=== PATIENT | female | born 1990 | race Caucasian/White ===

== ENCOUNTER 2016-09-07 15:23 | Inpatient (IN) | payer MEDICAID, OTHER ==
[2014-08-08 14:04] VITALS: BMI 28.9
[2016-09-07] MEDS ORDERED: Sodium Citrate/Citric Acid 15 ml Sol PO ONE (15:34)
[2016-09-07] MEDS ORDERED: cefOXitin IV 2 gm in Dextrose 2 GM/50 ML BAG IVPB ONE ×2 (15:37→15:55)
[2016-09-07] MEDS ORDERED: Lactated Ringer's 1,000 ML IV SCH ×2 (15:45→17:00)
--- NOTE | 2016-09-07 15:48 | OBADHP ---
Datetime: 09/07/2016 15:39 IP Adm Impression Other: previous csection Admit Comment, IP Provider: chief complaint-contractions HPI 26 y/o at 38.5wga with c/o contractions sinec morning.Patient denies los sof fluid.report s active movement course uncomplicated as per patient PMH denies PSH scection OBGYN HX ; scection at 40 wga due to failed induction Social hx denies tobacco, alcohol or illicit drug use Exam see exam section A/P 26 y/o , at 38 weeks and 5 days with c/o contractions.Hx of previous csection in labor -admit -see orders -dr washington aware Pelvic Type - PN: Adequate Extremities - PN: Normal Abdomen - PN: Normal Back - PN: Normal Lungs - PN: Normal Heart - PN: Normal Neurologic - PN: Normal General - PN: Normal Weight - Estimated: 3200 Presentation-Admit: Vertex Contraction Comments Provider: every 2min Gestation - Est Wks by US: 38.5 IP Hx Assessment: The History has been Reviewed and is Current Vital Signs Provider: Reviewed IP Chief Complaint: Uterine contractions FHR Category Provider Fetus A: Category I Dilatation, Provider: 2 Genitourinary Exam: Normal DTRs - PN: Normal EGA AdmitDate IP: 38.5 IP Adm Impression: Term, intrauterine ; Active labor IP Admit Plan: Admit to unit; Initiate Section protocol
[2016-09-07] MEDS ORDERED: Oxytocin 20 units in LR 2,000 ML IV ONE (15:55)
[2016-09-07] MEDS ORDERED: Sodium Citrate/Citric Acid 15 ml Sol ONE (15:55)
[2016-09-07 15:59] LABS: BASO % 0.3 % (0.0-2.0); EOS % 0.7 % (0.0-4.0); HEMATOCRIT 35.7 % (34.0-47.0); LYMPH # 1.7 K/uL (1.0-4.3); MEAN CELL VOLUME 84.3 fL (81.0-99.0); MEAN CORPUSCULAR HEMOGLOBIN 27.6 pg (27.0-31.0); MEAN CORPUSCULAR HGB CONC 32.8 g/dL (33.0-37.0); MEAN PLATELET VOLUME 9.1 fL (7.2-11.7); MONO # 0.5 K/uL (0.0-0.8); MONO % 7.8 % (0.0-10.0); RED CELL DISTRIBUTION WIDTH 13.6 % (11.5-14.5); WHITE BLOOD COUNT 6.1 K/uL (4.8-10.8)
[2016-09-07] MEDS ORDERED: Oxycodone/Acetaminophen 5/325 mg Tab PO PRN (16:02)
--- NOTE | 2016-09-07 16:06 | PCM.SURG1 ---
Surgeon's Initial Post Op Note - Surgeon's Notes Surgeon: dr washington Jute Bag Clipper: dr Easley Type of Anesthesia: Spinal Anesthesia Administered By: DR RABAGO Pre-Operative Diagnosis: 26 YR at 38weeks previous c/s in labor Operative Findings: see the op reoprt Post-Operative Diagnosis: same Operation Performed: repeat secttion Specimen/Specimens Removed: cord blood. placente Estimated Blood Loss: EBL {In ML}: 800 Blood Products Given: N/A Drains Used: No Drains Post-Op Condition: Good Date of Surgery/Procedure: 09/07/16 Time of Surgery/Procedure: 17:00
[2016-09-07 16:19] LABS: CHLORIDE 102 mmol/L (98-107); SODIUM 135 mmol/L (132-148)
[2016-09-07 16:20] LABS: POTASSIUM 3.6 mmol/L (3.6-5.2)
[2016-09-07] MEDS ORDERED: Morphine 1 mg/ml preservative-free Inj(Duramorph) ONE (16:20)
[2016-09-07 16:22] LABS: ALB/GLOB RATIO 0.9 (1.0-2.1); ALKALINE PHOSPHATASE 123 U/L (38-126); ALT/SGPT 21 U/L (9-52); AST/SGOT 21 U/L (14-36); BILIRUBIN,TOTAL 0.6 mg/dL (0.2-1.3); BLOOD UREA NITROGEN 6 mg/dL (7-17); CALCIUM 8.9 mg/dl (8.6-10.4); CARBON DIOXIDE 22 mmol/L (22-30); GFR AFRICAN-AMERICAN > 60; GLUCOSE,RANDOM 82 mg/dL (65-105)
[2016-09-07 16:28] LABS: RBC URINE < 1 /hpf (0-3); URINE BACTERIA OCC (<OCC); URINE BILIRUBIN NEGATIVE (NEGATIVE); URINE BLOOD NEGATIVE (NEGATIVE); URINE COLOR Yellow (YELLOW); URINE GLUCOSE (UA) NORMAL (Normal); URINE KETONE NEGATIVE (NEGATIVE); URINE LEUKOCYTE ESTERASE TRACE Leu/uL (Negative); URINE PROTEIN NEGATIVE (NEGATIVE); URINE UROBILINOGEN NORMAL mg/dL (0.2-1.0); WBC URINE 2 /hpf (0-5)
[2016-09-07] MEDS ORDERED: Dexamethasone 4 mg/1 ml IVP PRN (16:59)
[2016-09-07] MEDS ORDERED: HYDROmorphone 0.5 mg/0.5 ml ISec IVP PRN (16:59)
[2016-09-07] MEDS ORDERED: DiphenhydrAMINE 50 mg/ml Inj IVP PRN (16:59)
--- NOTE | 2016-09-07 17:31 | OBDS ---
MATERNAL INFORMATION Provider Comments: baby deliverd in lot. end clean no com LABOR SUMMARY EDC: 09/16/2016 00:00 No. Babies in Womb: 1 LABOR INFORMATION Onset of Labor: 09/07/2016 12:30 STAGES OF LABOR Stage 3 hrs: 0 Stage 3 min: 1 Total Time in Labor hrs: 4 Total Time in Labor min: 21 VAGINAL DELIVERY Episiotomy: None Laceration Extension: N/A Laceration Type: None CSECTION DELIVERY Primary Indication: Repeat Elective Secondary Indication: N/A Other Secondary Indication: in labor CSection Urgency: Elective CSection Incidence: Repeat Labor: Labor Elective: Elective CSection Incision: Lower Uterine Transverse BABY A INFORMATION Delivery Date/Time: 09/07/2016 16:50 Method of Delivery: Born in Route : No : N/A Forceps: N/A Vacuum Extraction: N/A Shoulder Dystocia : No SHOULDER DYSTOCIA BABY A Infant Delivery Date/Time: 09/07/2016 16:50 PRESENTATION/POSITION BABY A Presentation: Cephalic Cephalic Presentation: Vertex Vertex Position: Left Occipital Anterior Breech Presentation: N/A PLACENTA INFORMATION BABY A Placenta Delivery Time : 09/07/2016 16:51 Placenta Method of Delivery: Manual Removal Placenta Status: Delivered SCORES BABY A Heart Rate 1 min: >100 bpm Resp Effort 1 min: Good Cry Reflex Irritability 1 min: Cough or Sneeze or Pulls Away Muscle Tone 1 min: Active Motion Color 1 min: Body [place], Extremities Blue SCORE 1 MIN: 9 Heart Rate 5 min: >100 bpm Resp Effort 5 min: Good Cry Reflex Irritability 5 min: Cough or Sneeze or Pulls Away Muscle Tone 5 min: Active Motion Color 5 min: Body [place], Extremities Blue SCORE 5 MIN: 9 INFANT INFORMATION BABY A Gestational Age at Delivery: 38.5 Gestational Status: Term Infant Outcome : Liveborn Infant Condition : Stable Infant Sex: Female IDENTIFICATION/MEDS BABY A ID Band Number: [id number] ID Band Location: Left Leg; Left Arm Sensor Applied: Yes Sensor Number: [id number] Sensor Location : Cord Clamp Vitamin K Given : Not Given Erythromycin Given: Not Given WEIGHT/LENGTH BABY A Infant Birthweight (gms): 2995 Infant Weight (lb): 6 Infant Weight (oz): 10 Length Inches: 18.50 Infant Length cms: 47.0 CORD INFORMATION BABY A No. Cord Vessels: 3 Nuchal Cord : N/A Cord Blood Taken: Yes Suction: Mouth; Nose ASSESSMENT BABY A Physical Findings at Delivery: Within Normal Limits Infant Respirations: Appears Normal Outreach Counselor/ALS Called : Yes Infant Care By: dr. etienne/nickolas jamison rn Transferred To: Remains with Mother
[2016-09-07 19:40] LABS: BASO % 0.5 % (0.0-2.0); EOS % 0.6 % (0.0-4.0); HEMATOCRIT 34.2 % (34.0-47.0); LYMPH % 26.6 % (20.0-40.0); MEAN CELL VOLUME 84.2 fL (81.0-99.0); MEAN CORPUSCULAR HEMOGLOBIN 27.9 pg (27.0-31.0); MEAN CORPUSCULAR HGB CONC 33.1 g/dL (33.0-37.0); MEAN PLATELET VOLUME 8.8 fL (7.2-11.7); MONO # 0.3 K/uL (0.0-0.8); MONO % 4.7 % (0.0-10.0); NRBC % 0.1 % (0.0-2.0); RED CELL DISTRIBUTION WIDTH 13.6 % (11.5-14.5); WHITE BLOOD COUNT 7.5 K/uL (4.8-10.8)
[2016-09-07] MEDS ORDERED: Oxytocin 30 UNIT 30 UNITS/500 ML BAG IV SCH (19:45)
[2016-09-07] MEDS ORDERED: Lactated Ringer's 1,000 ML IV ONE (22:14)
[2016-09-08] MEDS: Oxycodone/Acetaminophen 5/325 mg Tab PO PRN ×4 (06:18→22:04)
[2016-09-08 07:13] LABS: HEMATOCRIT 34.8 % (34.0-47.0); MEAN CELL VOLUME 85.2 fL (81.0-99.0); MEAN CORPUSCULAR HGB CONC 32.9 g/dL (33.0-37.0); MEAN PLATELET VOLUME 8.8 fL (7.2-11.7); RED CELL DISTRIBUTION WIDTH 13.6 % (11.5-14.5); WHITE BLOOD COUNT 10.6 K/uL (4.8-10.8)
--- NOTE | 2016-09-08 11:15 | OBPPN ---
Datetime: 09/08/2016 10:47 PP Pain Prov: Within normal limits PP Nausea Prov: Denies PP Flatus Prov: No PP BM Prov: No PP Breasts Prov: Normal PP Heart Prov: Normal PP Lungs Prov: Normal PP Abdomen/Uterus Prov: Normal PP Lochia Prov: Normal PP Vulva/Perineum Prov: Not Done PP CVA Tenderness Prov: Normal PP Extremities Prov: Normal PP C/S Incision Prov: Normal PP Progress Prov: Normal PP Comments Phys Exam Prov: Breasts: no cracked nipples Abdomen: Softly distended. (+) BS. Dressing - clean and dry. Fundus firm, appropriate, and mildly tender at umbilicus. All other systems reviewed and are negative PP Plan Prov: Continue present management PP Progress Note Prov: Asked by Dr. Hill to evaluate patient Patient received sitting up in chair, room 451. Support person sleeping. . Reports in cisional pain. Denies nausea, vomiting; dizziness or lightheadedness. P.E.: as above. WD in NAD. Awake, alert, oriented to time, person and place. Cooperative - POD#1 H/H 11.5/34.8. Rh(+) Assessment: POD#1 26 y.o. P2, S/P repeat C/S x 1; afebrile, vital signs stable. Returning GI and G U functions. Encouraged to ambulate. Clinically stable. Plan: 1) Continue present management Vital Signs Provider PP: Reviewed
[2016-09-08] MEDS ORDERED: Bisacodyl 5mg EC Tab PO ONE (16:02)
[2016-09-09] MEDS: Oxycodone/Acetaminophen 5/325 mg Tab PO PRN (14:06)
[2016-09-09 16:19] VITALS: RESP 20; O2SAT 99
--- NOTE | 2016-09-09 20:24 | OBPPN ---
Datetime: 09/09/2016 20:18 PP Pain Prov: Within normal limits PP Nausea Prov: Denies PP Flatus Prov: Yes PP BM Prov: No PP Breasts Prov: Normal PP Heart Prov: Normal PP Lungs Prov: Normal PP Abdomen/Uterus Prov: Normal PP Lochia Prov: Normal PP Vulva/Perineum Prov: Not Done PP CVA Tenderness Prov: Normal PP Extremities Prov: Normal PP C/S Incision Prov: Normal PP Progress Prov: Normal PP Comments Phys Exam Prov: Abdomen: soft. non distended. Incision with subcuticular closure - clean , dry, intact. Fundus firm, mobile, tender, at umbilicus All other systems reviewed and are negative PP Impression Prov: Normal progression PP Plan Prov: Continue present management PP Progress Note Prov: Patient seen and evaluated earlier in the morning: received in room 451 sitti ng up in chair. Denies nausea, vomiting. Not yet ambulating out of room. Voiding without difficulty. exclusively. P.E.: as above. WD in NAD. Awake, alert, oriented to time, person and place. Assessment: 26 y.o. P2, S/P repeat C/S. Returning GI and functions. Afebrile, vital signs stabl e. Patient encouraged to ambulate in the hallways. Clinically stable. Plan: 1) As above 2) Possible discharge home 09/10/16 Vital Signs Provider PP: Reviewed
[2016-09-10] MEDS: Oxycodone/Acetaminophen 5/325 mg Tab PO PRN ×2 (01:14→09:30)
--- NOTE | 2016-09-10 07:50 | OBDCSUM ---
Datetime: 09/10/2016 07:50 Discharged to, Provider: Home Follow up at, Provider: Dr Hill Disch Instr Activity: Normal activity Disch Instr Diet: Regular Discharge Instructions, Provider: Routine instructions given Discharge Diagnosis, Provider: Term Delivered Discharge Time: 09/10/2016 07:50 Follow up in weeks, Provider: 6 weeks Disch Referrals: None Contraception discussed, Prov: Yes Disch Activity Restrictions: No exercising; No sexual activity; Nothing in vagina - Custar, robert elizondo Discharge Comment, Provider: f/u OBGYN 6 weeks precatuiosn given Discharge Diagnosis Prov Other: Contraception after Delivery: Not Planning to Use
--- NOTE | 2016-09-10 07:50 | OBPPN ---
Datetime: 09/10/2016 07:48 PP Pain Prov: Within normal limits PP Nausea Prov: Denies PP Flatus Prov: Yes PP BM Prov: No PP Breasts Prov: Normal PP Heart Prov: Normal PP Lungs Prov: Normal PP Abdomen/Uterus Prov: Normal PP Lochia Prov: Normal PP Vulva/Perineum Prov: Normal PP CVA Tenderness Prov: Normal PP Extremities Prov: Normal PP C/S Incision Prov: Not Applicable PP Progress Prov: Normal PP Impression Prov: Normal progression PP Plan Prov: Discharge PP Progress Note Prov: pt seen and examined denies any pain. pt ambuating, breast feeding, voiding, passing flatus, tolerating regular diet, reqeusting discharge home VSS PE see above a/p s/p PPD #2 doing well -d/c home as per PCP -f/u OBGYN 6 weeks -precautions given IP PP Procedures: None Vital Signs Provider PP: Within Normal Limits
[2016-09-10 07:51] VITALS: BP 82/47; PULSE 66; TEMP 98.1
== END 2016-09-10 12:08 | disposition home or self-care (01) | DRG 371 ==
LOC: C.EROB 15:23 → C.4D 15:49 → C.4M 21:40
PROVIDERS: ADMIT Obstetrics & Gynecology; ATTEND Obstetrics & Gynecology
PROC: 10D00Z1 Extraction of Products of Conception, Low, Open Approach (ICD-10-PCS; principal; 2016-09-07)
DX: O34.211 Maternal care for low transverse scar from previous cesarean delivery (principal); Z37.0 Single live birth; Z3A.38 38 weeks gestation of pregnancy